=== PATIENT | female | born 1960 | race Caucasian/White ===

== ENCOUNTER 2017-09-13 09:53 | Emergency (ER) | payer MEDICAID | END 2017-09-13 10:18 | disposition home or self-care (01) | LOC: E/R 09:53 | DX: R50.9 Fever, unspecified (principal) | CPT/HCPCS: 99284; Z7502 ==

== ENCOUNTER 2017-09-15 12:27 | Emergency (ER) | payer MEDICAID ==
[2017-09-15] MEDS: SOD CHLORIDE 0.9% 1,000 ML IV (16:07)
[2017-09-15] MEDS: ONDANSETRON 4 MG INJ IV (16:08)
[2017-09-15] MEDS: morphine 4 MG/ML VIAL IV (16:09)
[2017-09-15 16:15] LABS: ADD MAN DIFF? NO
[2017-09-15 16:16] LABS: ADD UMIC YES; UR ASCORBIC ACID NEGATIVE (NEGATIVE); UR BILIRUBIN (Dip) NEGATIVE (NEGATIVE); UR BLOOD (Dip) NEGATIVE (NEGATIVE); UR CLARITY CLEAR (CLEAR); UR COLOR COLORLESS (YELLOW); UR GLUCOSE (Dip) NEGATIVE (NEGATIVE); UR KETONES (Dip) NEGATIVE (NEGATIVE); UR LEUKOCYTE ESTERASE (Dip) TRACE Leu/ul (NEGATIVE); UR NITRITE (Dip) NEGATIVE (NEGATIVE); UR RBC 0 /HPF (0-5); UR SPECIFIC GRAVITY (Dip) 1.003 (1.003-1.030); UR TOTAL PROTEIN (Dip) NEGATIVE (NEGATIVE); UR UROBILINOGEN (Dip) NEGATIVE (NEGATIVE); UR WBC 0 /HPF (0-5)
[2017-09-15 16:17] LABS: BASOPHILS % 0.6 % (0.0-2.0); EOSINOPHILS # 0.2 10^3/ul (0.0-0.5); EOSINOPHILS % 3.1 % (0.0-7.0); HEMATOCRIT 37.6 % (37.0-47.0); HEMOGLOBIN 12.7 g/dl (12.0-16.0); LYMPHOCYTES # 1.9 10^3/ul (0.8-2.9); LYMPHOCYTES % 36.5 % (15.0-51.0); MEAN CORPUSCULAR HEMOGLOBIN 29.9 pg (29.0-33.0); MEAN CORPUSCULAR HGB CONC 33.8 g/dl (32.0-37.0); MEAN CORPUSCULAR VOLUME 88.5 fl (82.0-101.0); MEAN PLATELET VOLUME 9.4 fl (7.4-10.4); MONOCYTE # 0.4 10^3/ul (0.3-0.9); MONOCYTES % 7.1 % (0.0-11.0); NEUTROPHIL # 2.7 10^3/ul (1.6-7.5); NEUTROPHILS % 52.5 % (39.0-77.0); PLATELET COUNT 234 10^3/UL (140-415); RED BLOOD COUNT 4.25 10^6/ul (4.20-5.40); RED CELL DISTRIBUTION WIDTH 12.7 % (11.5-14.5)
[2017-09-15 16:17] LABS: WHITE BLOOD COUNT 5.2 10^3/ul (4.8-10.8)
[2017-09-15 16:39] LABS: ALANINE AMINOTRANSFERASE 39 IU/L (13-69); ALBUMIN 4.5 g/dl (3.3-4.9); ALBUMIN/GLOBULIN RATIO 1.21; ALKALINE PHOSPHATASE 85 IU/L (42-121); AMYLASE 82 U/L (11-123); ANION GAP 13 (8-16); ASPARTATE AMINO TRANSFERASE 33 IU/L (15-46); BILIRUBIN,INDIRECT 0.1 mg/dl (0-1.1); BILIRUBIN,TOTAL 0.1 mg/dl (0.2-1.3); BLOOD UREA NITROGEN 12 mg/dl (7-20); CALCIUM 9.3 mg/dl (8.4-10.2); CARBON DIOXIDE 28 mmol/L (21-31); CHLORIDE 104 mmol/L (97-110); GLUCOSE 89 mg/dl (70-220); LIPASE 138 U/L (23-300); POTASSIUM 4.3 mmol/L (3.5-5.1); SODIUM 141 mmol/L (135-144); TOTAL PROTEIN 8.2 g/dl (6.1-8.1)
[2017-09-15] MEDS: SOD CHLORIDE 0.9% 100 ML (16:43)
[2017-09-15] MEDS: IODIXANOL LOCM 100 ML BTL (16:43)
== END 2017-09-15 18:02 | disposition home or self-care (01) ==
LOC: FTE 12:27
DX: R30.0 Dysuria (principal); R10.32 Left lower quadrant pain
CPT/HCPCS: 36415; 74177; 80053; 81001; 82150; 83690; 85025; 87086; 96374; 96375; 99285-25

== ENCOUNTER 2017-09-21 09:26 | Emergency (ER) | payer MEDICAID ==
[2017-09-21 17:33] LABS: URINE BLOOD (Dip) POC Trace-intact (NEGATIVE); URINE GLUCOSE (Dip) POC Negative (NEGATIVE); URINE KETONES (Dip) POC Negative (NEGATIVE); URINE LEUKOCYTE EST (Dip) POC Negative (NEGATIVE); URINE NITRITE (Dip) POC Negative (NEGATIVE); URINE TOTAL PROTEIN POC Negative (NEGATIVE)
[2017-09-21 17:33] LABS: URINE PH (Dip) POC 5.5 (5.0-8.5)
[2017-09-21] MEDS: ONDANSETRON (ODT) 4 MG TAB ODT (17:34)
[2017-09-21] MEDS: HYDROCODONE/APAP (10/325) TAB PO (17:35)
[2017-09-21 17:41] LABS: ADD MAN DIFF? NO
[2017-09-21 17:44] LABS: BASOPHIL # 0.1 10^3/ul (0.0-0.1); BASOPHILS % 0.8 % (0.0-2.0); EOSINOPHILS # 0.1 10^3/ul (0.0-0.5); EOSINOPHILS % 1.8 % (0.0-7.0); HEMATOCRIT 40.2 % (37.0-47.0); HEMOGLOBIN 13.3 g/dl (12.0-16.0); LYMPHOCYTES # 2.6 10^3/ul (0.8-2.9); LYMPHOCYTES % 44.3 % (15.0-51.0); MEAN CORPUSCULAR HEMOGLOBIN 28.9 pg (29.0-33.0); MEAN CORPUSCULAR HGB CONC 33.1 g/dl (32.0-37.0); MEAN CORPUSCULAR VOLUME 87.4 fl (82.0-101.0); MEAN PLATELET VOLUME 9.7 fl (7.4-10.4); MONOCYTE # 0.4 10^3/ul (0.3-0.9); MONOCYTES % 7.2 % (0.0-11.0); NEUTROPHIL # 2.7 10^3/ul (1.6-7.5); NEUTROPHILS % 45.7 % (39.0-77.0); PLATELET COUNT 293 10^3/UL (140-415); RED CELL DISTRIBUTION WIDTH 12.5 % (11.5-14.5)
[2017-09-21 18:01] LABS: ANION GAP 12 (8-16); BLOOD UREA NITROGEN 11 mg/dl (7-20); CARBON DIOXIDE 30 mmol/L (21-31); CHLORIDE 103 mmol/L (97-110); GLUCOSE 130 mg/dl (70-220); SODIUM 141 mmol/L (135-144)
[2017-09-21 18:02] LABS: ALANINE AMINOTRANSFERASE 35 IU/L (13-69); ALBUMIN 4.7 g/dl (3.3-4.9); ALBUMIN/GLOBULIN RATIO 1.27; ALKALINE PHOSPHATASE 82 IU/L (42-121); ASPARTATE AMINO TRANSFERASE 29 IU/L (15-46); BILIRUBIN,INDIRECT 0.1 mg/dl (0-1.1); BILIRUBIN,TOTAL 0.1 mg/dl (0.2-1.3); CALCIUM 9.7 mg/dl (8.4-10.2); CREATININE 0.69 mg/dl (0.44-1.00); LIPASE 154 U/L (23-300); TOTAL PROTEIN 8.4 g/dl (6.1-8.1)
== END 2017-09-21 19:14 | disposition home or self-care (01) ==
LOC: E/R 09:26
DX: R30.0 Dysuria (principal); I10 Essential (primary) hypertension
CPT/HCPCS: 36415; 80053; 81003; 83690; 85025; 99283

== ENCOUNTER 2018-07-01 14:02 | Emergency (ER) | payer MEDICAID ==
[2018-07-01] MEDS: DEXAMETHASONE 4 MG TAB PO (14:47)
[2018-07-01] MEDS: ACETAMINOPHEN 325 MG TAB PO (14:49)
== END 2018-07-01 15:17 | disposition home or self-care (01) ==
LOC: FTE 14:02
DX: R05 Cough (principal); I10 Essential (primary) hypertension
CPT/HCPCS: 99283; Z7502

== ENCOUNTER 2019-04-01 17:50 | Emergency (ER) | payer MEDICAID ==
[2019-04-01] MEDS: ACETAMINOPHEN 325 MG TAB PO (18:32)
== END 2019-04-01 19:43 | disposition home or self-care (01) ==
LOC: FTE 17:50
DX: K59.00 Constipation, unspecified (principal); I10 Essential (primary) hypertension; J06.9 Acute upper respiratory infection, unspecified; H92.02 Otalgia, left ear
CPT/HCPCS: 99284; Z7502

== ENCOUNTER 2019-04-11 11:04 | Emergency (ER) | payer MEDICAID | END 2019-04-11 12:57 | disposition home or self-care (01) | LOC: FTE 11:04 | DX: K64.9 Unspecified hemorrhoids (principal); I10 Essential (primary) hypertension | CPT/HCPCS: 99284; Z7502 ==

== ENCOUNTER → 2019-05-20 | Emergency (ER) | payer MEDICAID | END | disposition home or self-care (01) | LOC: FTE 10:30 | DX: R05 Cough (principal); I10 Essential (primary) hypertension | CPT/HCPCS: 99283; Z7502 ==